=== PATIENT | female | born 1945 | race Caucasian/White ===

== ENCOUNTER 2018-06-17 04:28 | Inpatient (IN) | payer OTHER ==
[~2018-06-17] VITALS: Ht 162.6 cm; Wt 83.5 kg
--- NOTE | 2018-06-17 04:33 | NUR ---
Pt. BIB EMS from [facility] for Medical Clearance, original 5150 in chart
--- NOTE | 2018-06-17 04:35 | NUR ---
EPIC paged per CLARISSA MORALES request.
--- NOTE | 2018-06-17 04:47 | NUR ---
Report given to Chayo, MRSA nares specimen collected and sent to lab,
[2018-06-17] MEDS ORDERED: ASPI81TA31 PO (04:52)
[2018-06-17] MEDS ORDERED: DULO30CA2 PO (04:52)
[2018-06-17] MEDS ORDERED: DONE10TA11 PO (04:52)
[2018-06-17] MEDS ORDERED: LEVO150T8 PO (04:52)
[2018-06-17] MEDS ORDERED: CHOL200074 PO (04:52)
[2018-06-17] MEDS ORDERED: INSU100V7 SQ (04:52)
[2018-06-17] MEDS ORDERED: NIFE60TA9 PO (04:52)
[2018-06-17] MEDS ORDERED: HYDR-4354 PO (04:52)
[2018-06-17] MEDS ORDERED: TRAZ-214 PO (04:52)
[2018-06-17] MEDS ORDERED: METO2.5T2 PO (04:52)
[2018-06-17] MEDS ORDERED: ALLO100T PO (04:52)
[2018-06-17] MEDS ORDERED: FURO80TA87 PO (04:52)
[2018-06-17] MEDS ORDERED: GABA-534 PO (04:52)
[2018-06-17] MEDS ORDERED: MAGN500C16 PO (04:52)
[2018-06-17] MEDS ORDERED: ATOR40TA PO (04:52)
[2018-06-17] MEDS ORDERED: MULT-1160 PO (04:52)
[2018-06-17] MEDS ORDERED: HYDR50TA68 PO (04:52)
[2018-06-17] MEDS ORDERED: CARVEDILOL 25 MG TABLET PO (04:52)
[2018-06-17] MEDS ORDERED: LANTUS SOLOSTAR 100 UNIT/ML SQ (04:52)
[2018-06-17] MEDS ORDERED: HYDROCODONE/APAP 10-325 MG TABLET PO PRN (05:00)
--- NOTE | 2018-06-17 05:03 | NUR ---
Pt. transferred off unit to MHU via stretcher by EMS
[2018-06-17] MEDS ORDERED: MAGNESIUM HYDROXIDE 30 ML LIQUID UDC PO PRN (05:15)
[2018-06-17] MEDS ORDERED: MAG HYDROX/AL HYDROX/SIMETH 30 ML LIQUID UDC PO PRN (05:15)
--- NOTE | 2018-06-17 05:43 | NUR ---
GPS/NSG Admit Note: Patient is a 72 yr old female placed on a 5150 for Danger to Self and Grave disability at [facility] after she was sent to ER by her motor room controller during a follow up visit. Patient arrived to [facility] where she was admitted under the care of Dr. Herring Psychiatrist and Dr. Hernández. Patient has a hx of Major Depression, Anxiety, Insomnia, Hyperlipidemia, Hypertension, Myocardial Infarction, Diabetes Mellitus, Chronic Kidney Disease, Chronic knee and lower back pain, Congestive Heart Failure, and Dementia.
[2018-06-17] MEDS ORDERED: Z GUARD REMEDY PASTE 57 GM TUBE TOP PRN (06:15)
[2018-06-17 07:05] VITALS: BP 153/57
[2018-06-17] MEDS: LORAZEPAM 0.5 MG TABLET PO PRN ×2 (07:08→13:16)
[2018-06-17 07:30] VITALS: BP 127/52
[2018-06-17] MEDS ORDERED: DONEPEZIL 10 MG TABLET PO SCH (09:00)
[2018-06-17] MEDS ORDERED: Medication Not On Formulary EA (Magnesium Oxide (Magnesium) 500 MG) PO SCH (09:00)
[2018-06-17] MEDS ORDERED: Medication Not On Formulary EA (Multivits-Min/Iron/FA/Lutein (Centrum Silver Women Table PO SCH (09:00)
[2018-06-17] MEDS ORDERED: MAGNESIUM OXIDE 250 MG TABLET PO SCH (09:00)
[2018-06-17] MEDS ORDERED: CARVEDILOL PO SCH (09:00)
[2018-06-17] MEDS: MULTIVIT, IRON, MIN NO. 8, FA TABLET PO SCH (09:35)
[2018-06-17] MEDS: CHOLECALCIFEROL 1,000 UNIT TABLET PO SCH (09:35)
[2018-06-17] MEDS: ASPIRIN 81 MG TAB.CHEW PO SCH (09:35)
[2018-06-17] MEDS: CARVEDILOL 12.5 MG TABLET PO SCH ×2 (09:36→18:28)
[2018-06-17] MEDS: LEVOTHYROXINE SODIUM 150 MCG TABLET PO SCH (09:38)
[2018-06-17] MEDS: hydrALAZINE HCL 50 MG TABLET PO SCH ×3 (09:40→18:28)
[2018-06-17] MEDS: NIFEdipine XL 60 MG TABSR PO SCH (09:41)
[2018-06-17] MEDS: VENLAFAXINE XR 37.5 MG CAP.SR.24H PO SCH (14:57)
[2018-06-17 16:11] VITALS: BP 141/54
[2018-06-17] MEDS: ACETAMINOPHEN 325 MG TABLET PO PRN (18:26)
--- NOTE | 2018-06-17 19:30 | NUR ---
RECEIVED PATIENT IN BED, AWAKE NO COMPLAIN OF PAIN AT THIS TIME, ASSISTED WITH TOILETING USING WALKER. PATIENT RESTING IN BED, PATIENT HAS EPISODES OF CRYING, REDIRECT BEHAVIOR WITH SOME HELP. WILL CONT TO MONITOR.
[2018-06-17] MEDS ORDERED: DEXTROSE 50% 50 ML DISP.SYRIN IV PRN (19:45)
[2018-06-17 20:00] VITALS: BP 112/44
[2018-06-17] MEDS ORDERED: ATORVASTATIN 20 MG TABLET PO SCH (21:00)
[2018-06-17] MEDS ORDERED: ATORVASTATIN 40 MG TABLET PO SCH (21:00)
[2018-06-17] MEDS ORDERED: MAGNESIUM OXIDE 400 MG TABLET PO SCH (21:00)
[2018-06-17] MEDS: GABAPENTIN 300 MG CAPSULE PO SCH (21:11)
[2018-06-17] MEDS: MIRTAZAPINE 15 MG TABLET PO SCH (21:13)
[2018-06-17] MEDS: BLOOD SUGAR DIAGNOSTIC 1 EACH STRIP VI SCH (21:18)
[2018-06-17] MEDS ORDERED: INSULIN REGULAR, HUMAN 300 UNIT/3 ML VIAL ONE (21:29)
[2018-06-17] MEDS ORDERED: INSULIN GLARGINE,HUM 300 UNITS/3 ML CARTRIDGE SQ ONE (21:29)
[2018-06-17] MEDS: INSULIN GLARGINE,HUM 300 UNITS/3 ML CARTRIDGE SQ SCH (21:45)
[2018-06-17] MEDS: INSULIN REGULAR, HUMAN 300 UNIT/3 ML VIAL SQ PRN (21:46)
[2018-06-17] MEDS: TEMAZEPAM 7.5 MG CAPSULE PO PRN (21:57)
--- NOTE | 2018-06-18 06:00 | NUR ---
PATIENT SLEPT MOST OF THE NIGHT, NO FURTHER EPISODES OF CRYING AT THIS TIME. NO COMPLAIN OF PAIN, ASSISTED WITH TOILETING, CONT TO MONITOR.
[2018-06-18] MEDS: BLOOD SUGAR DIAGNOSTIC 1 EACH STRIP VI SCH ×4 (06:05→21:03)
[2018-06-18] MEDS: LEVOTHYROXINE SODIUM 150 MCG TABLET PO SCH (06:49)
[2018-06-18 07:30] VITALS: BP 114/43
[2018-06-18 08:10] LABS: BASOPHILS # (AUTO) 0.1 K/uL (0.0-8.0); EOSINOPHILS # (AUTO) 0.4 K/uL (0.0-0.7); EOSINOPHILS % (AUTO) 5.4 % (0.0-7.0); HEMATOCRIT 32.2 % (31.2-41.9); HEMOGLOBIN 10.5 g/dL (10.9-14.3); LYMPHOCYTES # (AUTO) 2.2 K/uL (20.0-40.0); LYMPHOCYTES % (AUTO) 30.6 % (20.5-51.5); MEAN CORPUSCULAR HEMOGLOBIN 29.3 uug (24.7-32.8); MEAN CORPUSCULAR HGB CONC 33 g/dL (32.3-35.6); MEAN CORPUSCULAR VOLUME 89.8 fL (75.5-95.3); MONOCYTES # (AUTO) 0.6 K/uL (2.0-10.0); MONOCYTES % (AUTO) 8.6 % (0.0-11.0); NEUTROPHILS # (AUTO) 3.9 K/uL (1.8-8.9); NEUTROPHILS % (AUTO) 54.4 % (38.5-71.5); PLATELET COUNT (AUTO) 337 K/uL (179-408); RED BLOOD CELL COUNT(AUTO) 3.58 MIL/uL (3.63-4.92); WHITE BLOOD COUNT (AUTO) 7.2 K/uL (3.8-11.8)
[2018-06-18 08:40] LABS: THYROID STIMULATING HORMONE 0.331 mIU/mL (0.358-3.740)
[2018-06-18 08:41] LABS: ALANINE AMINOTRANSFERASE 19 U/L (14-59); ALKALINE PHOSPHATASE 76 U/L (50-136); ASPARTATE AMINOTRANSFERASE 27 U/L (15-37); BILIRUBIN,TOTAL 0.4 mg/dL (0.2-1.0); CARBON DIOXIDE 31 mmol/L (21-32); CHLORIDE 93 mmol/L (98-107); CREATININE 1.8 mg/dL (0.6-1.3); GLUCOSE 97 mg/dL (74-106); MAGNESIUM 2.5 mg/dL (1.8-2.4); PHOSPHOROUS 4.3 mg/dL (2.5-4.9); POTASSIUM 3.5 mmol/L (3.5-5.1); TOTAL PROTEIN, SERUM 7.4 g/dL (6.4-8.2); UREA NITROGEN, BLOOD 51 mg/dL (7-18)
[2018-06-18] MEDS: hydrALAZINE HCL 50 MG TABLET PO SCH ×3 (09:00→16:49)
[2018-06-18] MEDS: CHOLECALCIFEROL 1,000 UNIT TABLET PO SCH (09:06)
[2018-06-18] MEDS: ASPIRIN 81 MG TAB.CHEW PO SCH (09:08)
[2018-06-18] MEDS: MULTIVIT, IRON, MIN NO. 8, FA TABLET PO SCH (09:08)
[2018-06-18] MEDS: VENLAFAXINE XR 37.5 MG CAP.SR.24H PO SCH ×2 (09:08→16:48)
[2018-06-18] MEDS: CARVEDILOL 12.5 MG TABLET PO SCH ×2 (09:09→16:49)
[2018-06-18] MEDS: INSULIN REGULAR, HUMAN 300 UNIT/3 ML VIAL SQ PRN ×2 (12:00→17:03)
[2018-06-18] MEDS: ACETAMINOPHEN 325 MG TABLET PO PRN ×2 (12:01→12:05)
[2018-06-18] MEDS ORDERED: INSULIN REGULAR, HUMAN 300 UNIT/3 ML VIAL SQ PRN (12:15)
[2018-06-18] MEDS ORDERED: BLOOD SUGAR DIAGNOSTIC 1 EACH STRIP VI SCH (12:15)
[2018-06-18] MEDS ORDERED: DEXTROSE 50% 50 ML DISP.SYRIN IV PRN (12:15)
[2018-06-18 12:57] LABS: URIC ACID 7.8 mg/dL (2.6-6.0)
[2018-06-18] MEDS: NIFEdipine XL 60 MG TABSR PO SCH (13:03)
[2018-06-18 16:05] VITALS: BP 113/51
--- NOTE | 2018-06-18 19:00 | NUR ---
PATIENT IN BED ASLEEP BUT EASILY AWAKEN. PATIENT HAS NO COMPLAIN OF PAIN, NO EPISODE OF CRYING AT THIS TIME. CONT TO MONITOR.
[2018-06-18 20:18] VITALS: BP 102/48
[2018-06-18] MEDS: ATORVASTATIN 10 MG TABLET PO SCH (20:59)
[2018-06-18] MEDS: GABAPENTIN 300 MG CAPSULE PO SCH (20:59)
[2018-06-18] MEDS: MIRTAZAPINE 15 MG TABLET PO SCH (20:59)
[2018-06-18] MEDS ORDERED: MAGNESIUM OXIDE 400 MG TABLET PO SCH (21:00)
[2018-06-18] MEDS: INSULIN GLARGINE,HUM 300 UNITS/3 ML CARTRIDGE SQ SCH (21:05)
[2018-06-18] MEDS: TEMAZEPAM 7.5 MG CAPSULE PO PRN (21:16)
--- NOTE | 2018-06-18 21:16 | NUR ---
PATIENT COMPLAIN OF INSOMNIA, AND REQUEST SLEEPING PILL. COMPLAIN OF UNABLE TO SLEEP, GIVEN PATIENT SNACKS TO MAKE SURE PATIENT NOT HUNGRY. WILL CONT TO MONITOR.
[2018-06-19] MEDS: LORAZEPAM 0.5 MG TABLET PO PRN (00:06)
--- NOTE | 2018-06-19 00:06 | NUR ---
PATIENT COMPLAIN OF ANXIETY, SAID TOO MANY THINGS ON HER MIND. REQUESTED SOMETHING TO RELAX HER, MEDICATED PATIENT WITH ATIVAN 0.5MG. WILL CONT TO MONITOR.
[2018-06-19] MEDS: BLOOD SUGAR DIAGNOSTIC 1 EACH STRIP VI SCH ×4 (06:11→20:33)
[2018-06-19] MEDS: LEVOTHYROXINE SODIUM 150 MCG TABLET PO SCH (06:41)
--- NOTE | 2018-06-19 07:22 | NUR ---
PATIENT AWAKE, SLEPT FAIRLY. NO EPISODES OF CRYING NOTED AT THIS TIME. CONT TO MONITOR.
[2018-06-19 07:29] LABS: BASOPHILS # (AUTO) 0.1 K/uL (0.0-8.0); BASOPHILS % (AUTO) 0.9 % (0.0-2.0); EOSINOPHILS # (AUTO) 0.4 K/uL (0.0-0.7); EOSINOPHILS % (AUTO) 5.5 % (0.0-7.0); HEMATOCRIT 29.4 % (31.2-41.9); HEMOGLOBIN 9.7 g/dL (10.9-14.3); LYMPHOCYTES # (AUTO) 1.9 K/uL (20.0-40.0); LYMPHOCYTES % (AUTO) 28.4 % (20.5-51.5); MEAN CORPUSCULAR HEMOGLOBIN 29.6 uug (24.7-32.8); MEAN CORPUSCULAR HGB CONC 33 g/dL (32.3-35.6); MEAN CORPUSCULAR VOLUME 89.7 fL (75.5-95.3); MONOCYTES # (AUTO) 0.6 K/uL (2.0-10.0); MONOCYTES % (AUTO) 8.8 % (0.0-11.0); NEUTROPHILS # (AUTO) 3.9 K/uL (1.8-8.9); NEUTROPHILS % (AUTO) 56.4 % (38.5-71.5); PLATELET COUNT (AUTO) 304 K/uL (179-408); RED BLOOD CELL COUNT(AUTO) 3.28 MIL/uL (3.63-4.92); WHITE BLOOD COUNT (AUTO) 6.8 K/uL (3.8-11.8)
[2018-06-19 07:30] VITALS: BP 125/52
[2018-06-19 07:42] LABS: CARBON DIOXIDE 31 mmol/L (21-32); CHLORIDE 94 mmol/L (98-107); CREATININE 1.8 mg/dL (0.6-1.3); GLUCOSE 118 mg/dL (74-106); MAGNESIUM 2.4 mg/dL (1.8-2.4); PHOSPHOROUS 4.5 mg/dL (2.5-4.9); UREA NITROGEN, BLOOD 48 mg/dL (7-18)
[2018-06-19 08:44] LABS: THYROID STIMULATING HORMONE 0.227 mIU/mL (0.358-3.740)
[2018-06-19] MEDS: CARVEDILOL 12.5 MG TABLET PO SCH ×2 (08:46→17:05)
[2018-06-19] MEDS: ASPIRIN 81 MG TAB.CHEW PO SCH (08:46)
[2018-06-19] MEDS: MULTIVIT, IRON, MIN NO. 8, FA TABLET PO SCH (08:46)
[2018-06-19] MEDS: CHOLECALCIFEROL 1,000 UNIT TABLET PO SCH (08:46)
[2018-06-19] MEDS: hydrALAZINE HCL 50 MG TABLET PO SCH ×3 (08:50→17:05)
[2018-06-19] MEDS: VENLAFAXINE XR 37.5 MG CAP.SR.24H PO SCH ×2 (08:54→17:04)
[2018-06-19] MEDS: NIFEdipine XL 60 MG TABSR PO SCH (08:55)
[2018-06-19 10:00] LABS: *BILIRUBIN,URIN NEGATIVE (NEGATIVE); *BLOOD, URINE NEGATIVE (NEGATIVE); *CLARITY,URINE CLEAR (CLEAR); *COLOR,URINE YELLOW (YELLOW); *KETONES,URINE NEGATIVE (NEGATIVE); *UROBILINOGEN,URINE 0.2 E.U./dl (NORMAL); LEUKOCYTE ESTERASE ,URINE NEGATIVE (NEGATIVE); NITRITE, URINE NEGATIVE (NEGATIVE); UGLUCOSE NEGATIVE (NEGATIVE)
[2018-06-19 10:43] LABS: BACTERIA,URINE FEW /HPF (NONE SEEN); RBC,URINE 0-3 /HPF (0-3); SQUAMOUS EPITHELIAL CELL,UR FEW /HPF (NONE SEEN); WBC,URINE 0-3 /HPF (0-3)
--- NOTE | 2018-06-19 11:42 | NUR ---
UR Note: HEBERT faxed daily clinicals to [facility], Ariana (ph. [phone]; fax [phone]). Ref#[id number]. Awaiting further authorization. HEBERT will continue to follow-up.
[2018-06-19] MEDS: INSULIN REGULAR, HUMAN 300 UNIT/3 ML VIAL SQ PRN ×3 (12:30→20:35)
--- NOTE | 2018-06-19 14:18 | NUR ---
WOUND CARE CONSULT: PT IS AMBULATORY AND CONTINENT WITH FRICTION IRRITATION OF LOWER BUTTOCKS, PRESENT ON ADMISSION. RECOMMENDATIONS MADE FOR SKIN PROTECTION. DISCUSSED WITH NURSING STAFF. IN AGREEMENT WITH PLAN OF CARE. Addendum: 06/19/18 at 1419 by ABY AMIN RN Amended: Links added.
[2018-06-19] MEDS ORDERED: Z GUARD REMEDY PASTE 57 GM TUBE TOP PRN (14:30)
[2018-06-19] MEDS: Z GUARD REMEDY PASTE 57 GM TUBE TOP SCH ×2 (14:36→20:53)
--- NOTE | 2018-06-19 16:24 | NUR ---
TUESDAY (06/20/18) DC NOTE: Patient will be discharged back home with her daughter [[address], [place] [address]; [phone]] via private transportation at 11am. Spoke with patient�s daughter, Edith ([phone]) who will provide transportation and is agreeable with discharge plans. Patient is aware and agreeable with discharge plans, denies SI/HI, and her mood seems euthymic. Patient will continue to follow-up with her Primary Care Physician, Dr. Mali Brewster [[address] [place] [address]; [phone]]. An order for an Intensive Outpatient Program was sent to [facility] [employer], Ariana (ph. [phone]; f. [phone]). Ariana will contact this typewriter repairer with [facility] details when available, and states that the patient will be assigned a Psychiatrist when she attends the [facility]. Patient will also be provided with a list of outpatient therapists authorized by her insurance. Patient was also provided resources for the [employer] ([phone]) and information for [employer] ( ). Patient was provided with caregiving resources to [facility] ([phone]); Home Care Assistance ([phone]) and [facility] ([phone]). Patient was provided with outpatient mental health referrals to [facility] Crisis Line , Moriah Edwards , and the National Suicide Prevention Lifeline . Addendum: 06/20/18 at 1021 by KRISTIAN DAVIS Additional Information: Patient was authorized from [facility] to attend [facility] [Address: [id number] [place] [address], [place] [address]; ]. HEBERT spoke with Ariana at [facility] who states that the patient will be picked up from her home on 06/21/18 between 8:30am and 9:30am and taken to her Intake appointment at the [facility]. From there, the patient will be assigned a Psychiatrist and will be determined how many days/week the patient will need. The patient also has an appointment with Dr. Brewster on 07/14/18 @ 11:30am.
[2018-06-19 16:30] VITALS: BP 122/54
--- NOTE | 2018-06-19 18:11 | NUR ---
: received patient awake on bed , patient verbalizes that shes experiencing generalized body pain 8/10 pain scale, PRN meds given , re assesed after 15 mins patient seen walking and denies pain, patient med compliant , seen by rehab,accucheck done, insulin per sliding scale given, with DC order for layton to be car pick up driver by daughter to home, will continue monitor
[2018-06-19] MEDS: INSULIN GLARGINE,HUM 300 UNITS/3 ML CARTRIDGE SQ SCH (20:36)
[2018-06-19] MEDS: TEMAZEPAM 7.5 MG CAPSULE PO PRN (20:37)
[2018-06-19] MEDS: ATORVASTATIN 10 MG TABLET PO SCH (20:52)
[2018-06-19] MEDS: MIRTAZAPINE 15 MG TABLET PO SCH (20:53)
[2018-06-19] MEDS: GABAPENTIN 300 MG CAPSULE PO SCH (20:53)
[2018-06-19 21:31] VITALS: BP 112/49
--- NOTE | 2018-06-19 22:00 | NUR ---
aaox3 ambulatory independent with ADL's voiding freely. needs attended. kept comfortable. tolerated po meds well. patient going home in am. accucheck 131. no complaints presented during shift. quiet night.
[2018-06-20] MEDS: LEVOTHYROXINE SODIUM 150 MCG TABLET PO SCH (06:32)
[2018-06-20] MEDS: BLOOD SUGAR DIAGNOSTIC 1 EACH STRIP VI SCH (06:33)
--- NOTE | 2018-06-20 06:43 | NUR ---
quiet night. aaox3-4 slept 8 hrs of sleep. accucheck 101.
[2018-06-20 07:30] VITALS: BP 121/53
[2018-06-20] MEDS: VENLAFAXINE XR 37.5 MG CAP.SR.24H PO SCH (09:13)
[2018-06-20] MEDS: ACETAMINOPHEN 325 MG TABLET PO PRN (09:13)
[2018-06-20] MEDS: MULTIVIT, IRON, MIN NO. 8, FA TABLET PO SCH (09:13)
[2018-06-20] MEDS: hydrALAZINE HCL 50 MG TABLET PO SCH (09:13)
[2018-06-20 09:14] VITALS: BP 121/53
[2018-06-20] MEDS: NIFEdipine XL 60 MG TABSR PO SCH (09:14)
[2018-06-20] MEDS: CARVEDILOL 12.5 MG TABLET PO SCH (09:14)
[2018-06-20] MEDS: CHOLECALCIFEROL 1,000 UNIT TABLET PO SCH (09:14)
[2018-06-20] MEDS: ASPIRIN 81 MG TAB.CHEW PO SCH (09:14)
[2018-06-20] MEDS: Z GUARD REMEDY PASTE 57 GM TUBE TOP SCH (09:22)
--- NOTE | 2018-06-20 09:47 | NUR ---
GPS: Nursing Notes: Refusing Pictures to Taken: Patient is refusing for pictures to be taken at this time, continue with her discharge disposition.
--- NOTE | 2018-06-20 11:15 | NUR ---
GPS: Nursing Notes: Discharge Notes: Patient is awake and responding to her name, cooperative with nursing care, compliant with her medications, following staff directions, denies any SI/HI, denies any AH/VH, denies any pain or discomfort, denies any SOB, discharge home with her daughter - Edith at [address], [place], [place] [id number] , instructions and prescription given to patient's daughter - Edith. Patient will continue to follow-up with her Primary Care Physician, Dr. Mali Brewster [[address] [place] [address]; [phone]]. An order for an Intensive Outpatient Program was sent to [facility] [employer], Ariana (ph. [phone]; f. [phone]). Per social work associate: Ariana states that the patient will be assigned a Psychiatrist when she attends the [facility]. Patient will also be provided with a list of outpatient therapists authorized by her insurance. Patient was also provided resources for the [employer] ([phone]) and information for [employer] ( ). Patient was provided with caregiving resources to [facility] ([phone]); Home Care Assistance ([phone]) and [facility] ([phone]). Patient was provided with outpatient mental health referrals to [facility] Crisis Line , [facility] , and the National Suicide Prevention Lifeline .
--- NOTE | 2018-06-20 11:25 | NUR ---
UR Note: HEBERT faxed discharge clinicals to [employer], Ariana (ph. [phone]; fax [phone]). Ref#[id number]. HEBERT will continue to follow-up.
== END 2018-06-20 11:15 | disposition home or self-care (01) | DRG 885 ==
LOC: ER 04:28 → GPS 05:04
PROVIDERS: ADMIT Psychiatry & Neurology Psychosomatic Medicine; ATTEND Internal Medicine
DX: F32.2 Major depressive disorder, single episode, severe without psychotic features (principal); N18.9 Chronic kidney disease, unspecified; E11.65 Type 2 diabetes mellitus with hyperglycemia; I13.0 Hypertensive heart and chronic kidney disease with heart failure and stage 1 through stage 4 chronic kidney disease, or unspecified chronic kidney disease; E11.22 Type 2 diabetes mellitus with diabetic chronic kidney disease; F41.9 Anxiety disorder, unspecified; Z79.4 Long term (current) use of insulin; I50.9 Heart failure, unspecified; E78.5 Hyperlipidemia, unspecified; Z91.81 History of falling; Z79.899 Other long term (current) drug therapy; Z79.82 Long term (current) use of aspirin; Z90.710 Acquired absence of both cervix and uterus
CPT/HCPCS: 36415; 70030-TC; 71045; 82652; 83550; 83735; 84100; 84443; 84550; 85025; 87086; 93005; A4663; J1815